=== PATIENT | female | born 1955 | race Caucasian/White ===

== ENCOUNTER 2017-01-31 23:50 | Emergency (ER) | payer MEDICARE, OTHER ==
[2017-01-31 22:07] LABS: WBC (NOT ORDERED) (RFLEX) 0 (0-5)
[2017-01-31 22:12] LABS: BASOPHILS 0.6 %; BASOPHILS ABSOLUTE 0.04 10/3/uL (0.0-0.16); EOSINOPHILS 1.7 %; EOSINOPHILS ABSOLUTE 0.12 10/3/uL (0.0-0.53); ER CBC TAT 0 Hrs 09 Mins; HEMATOCRIT 36.7 % (36.0-48.0); HEMOGLOBIN 12.7 g/dL (12.0-16.0); IMMATURE GRANULOCYTES 0.1 %; IMMATURE GRANULOCYTES ABSOLUTE 0.01 10/3/uL (0.0-0.11); LYMPHOCYTES 46.4 %; LYMPHOCYTES ABSOLUTE 3.18 10/3/uL (0.67-4.30); MEAN CORPUS HGB CONC 34.6 g/dL (32.0-36.0); MEAN CORPUSCULAR HEMOGLOB 34.9 pg (26.0-34.0); MEAN CORPUSCULAR VOLUME 100.8 fL (80-100); MEAN PLATELET VOLUME 9.2 fL (9.2-13.0); MONOCYTES 11.5 %; MONOCYTES ABSOLUTE 0.79 10/3/uL (0.21-1.20); NEUTROPHILS 39.7 %; NEUTROPHILS ABSOLUTE 2.72 10/3/uL (2.02-8.40); PLATELET COUNT 272 10/3/uL (150-400); RBC DISTRIBUTION WIDTH 12.5 % (12.0-16.0); RED CELL COUNT 3.64 10/6/uL (4.0-5.6); WHITE BLOOD CELLS 6.9 10/3/uL (4.5-10.5)
[2017-01-31 22:13] LABS: MANUAL DIFF NO %
[2017-01-31 22:17] LABS: ASCORBIC ACID (UR NOT ORDER) NEG (NEG); BILIRUBIN, URINE NEGATIVE (NEG); ER URINALYSIS TAT 0 Hrs 14 Mins; KETONE, URINE NEGATIVE (NEG); LEUKOCYTE ESTERASE(NOT OR NEG (NEG); NITRITE (URINE) NEG (NEG)
[2017-01-31 22:26] LABS: A/G RATIO 0.9 (0.7-1.9); ALBUMIN 3.5 G/DL (3.5-5.0); CALCIUM, SERUM 8.6 MG/DL (8.5-10.4); CHLORIDE, SERUM 105 MMOL/L (96-112); CREATININE 0.92 MG/DL (0.55-1.02); GFR AFRICAN AMERICAN 77 ML/MIN (>=60); GFR NON AFRICAN AMERICAN 66 ML/MIN (>=60); GLOBULIN 3.8 G/DL (2.5-4.1); GLUCOSE, SERUM 82 MG/DL (60-99); POTASSIUM, SERUM 3.8 MMOL/L (3.5-5.3); SGOT(AST) 18 U/L (5-40); SGPT(ALT) 28 U/L (5-65); SODIUM, SERUM 141 MMOL/L (135-148); TOTAL BILIRUBIN 0.3 MG/DL (0-1.2); TOTAL PROTEIN 7.3 G/DL (6.0-8.5)
[2017-01-31 22:27] LABS: ALKALINE PHOSPHATASE 144 U/L (45-117); BUN (BLOOD UREA NITROGEN) 12 MG/DL (6-23); CO2 (CARBON DIOXIDE) 31 MMOL/L (24-34)
[~2017-01-31 23:50] MED LIST: ACEBUTOLOL PO; ALLEGRA180 PO; B12250T PO; BENIFIBER PO; CENTRUM PO; CENTRUM TAB1 TAB PO; ESTRADIOL VA; FISH-EPA1000 MG PO; FLONASE NAS; FOLIC PO; IMITREX100 MG PO; MAX25 PO; METHOTREXATE25 MG/ML IM; MICARDIS40 PO; PREV30 PO; REMICADE IV; RESTASIS OPH; THERA TEARS OR; VIACTIV PO; VIVELLE-DOT0.1 MG TOP; ZANTAC150 MG PO; [UNRECOGNIZED DRUG - OTHER]; [UNRECOGNIZED DRUG - OTHER] VA
== END 2017-02-01 00:45 | disposition home or self-care (01) ==
LOC: ER 23:50
PROVIDERS: Specialist
DX: R10.9 Unspecified abdominal pain (principal); I10 Essential (primary) hypertension; Z85.828 Personal history of other malignant neoplasm of skin; Z90.710 Acquired absence of both cervix and uterus; Z88.2 Allergy status to sulfonamides; Z88.1 Allergy status to other antibiotic agents; Z88.5 Allergy status to narcotic agent; Z88.8 Allergy status to other drugs, medicaments and biological substances; Z79.899 Other long term (current) drug therapy
CPT/HCPCS: 74176; 80053; 81001; 83690; 85025; 99284

== ENCOUNTER 2017-03-30 14:43 | Observation (INO) | payer MEDICARE, OTHER ==
--- NOTE | ~2017-03-30 | HP ---
History And Physical [place] [id number] [place]. [address] NAME: DARIO MANUEL : 51 STATUS : ADM Edwar PAT#: [id number] AGE: 61 ADM/REG DATE : 03/30/17 MR#: [id number] REPORT SERV DATE: 03/31/17 DICTATED BY: DATE: REPORT STATUS : Draft TRANSCRIBED BY: MODL DATE: 03/31/17 DATE OF ADMISSION: 03/30/2017 CHIEF COMPLAINT: Arm weakness, chest pressure, and chest pain. HISTORY OF PRESENT ILLNESS: This is a 61-year-old white female without a history of coronary artery disease, who presents with weakness to her bilateral arms and chest pressure 2/10 occurring soon after the weakness occurred. The patient reports the weakness in the arms is chronic and occurs intermittently and has occurred intermittently for 10 years. The patient reports the chest pressure is new and lasted about a minute or less without any chest pain yesterday in the morning. The patient denies any recurrence of chest pressure and reports that it went away on its own and she did not use any medications to lessen the intensity. The patient does report that later in the day, chest pain did occur and lasted less than or equal to a minute and occurred only once, it was 2/10 on the pain scale, and the chest pain did not radiate anywhere. She denies having any nausea, vomiting, shortness of breath, diaphoresis, or palpitations during her events. The patient does report to have had "faint- like spells" in the last two to three months, which she has discussed with her PCP. She denies any syncopal episodes and reports that PCP is trying to find out the cause of the "faint-like spells." The patient currently has a migraine with nausea. She was given Tylenol and then morphine, which did not help. Therefore, Imitrex was continued from her home medication list. She reports that her migraines are chronic and have occurred since the . She does report since she received morphine she is mildly drowsy. Other than the migraine, the patient denies any other complaints this morning. The patient currently denies any shortness of breath, chest pain or pressure. Denies any nausea, vomiting, or abdominal pain. The patient also denies any personal history of myocardial infarction, stroke, DVT, or pulmonary embolus. The patient denies any recent fever or chills. No palpitations. No syncopal episodes. Denies PND or orthopnea. PAST MEDICAL HISTORY: 1. MVP. 2. Murmur. 3. Hypertension. 4. Rheumatoid arthritis. 5. GERD. 6. Diverticulosis. 7. Migraines. 8. Sinuses. 9. Allergies. 10.Osteoarthritis. The patient reports her last echo was about 15 years ago and that her MVP and murmur is being assessed by her PCP. PAST SURGICAL HISTORY: 1. Three sinus surgeries. History And Physical [address] [address] NAME: DARIO MANUEL : 51 STATUS : ADM Edwar PAT#: [id number] AGE: 61 ADM/REG DATE : 03/30/17 MR#: [id number] REPORT SERV DATE: 03/31/17 DICTATED BY: DATE: REPORT STATUS : Draft TRANSCRIBED BY: MODL DATE: 03/31/17 2. Tonsillectomy. 3. Right shoulder rotator cuff surgery. 4. Cholecystectomy. 5. Hysterectomy. 6. Bladder sling surgery x3. 7. Tubal ligation. SOCIAL HISTORY: The patient is retired and on disability due to her rheumatoid arthritis and migraine. 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 She is and has two children. She denies any tobacco use. She denies any alcohol use. She denies any illicit drug use. FAMILY HISTORY: 1. Mother with CHF, at the age of 89, had an SD in her 70s. 2. Father had CHF, from that at the age of 79, had a couple of MIs, his first was in the age range of 60 to 70. REVIEW OF SYSTEMS: A 14-point review of systems was performed and significant for HPI. No other contributory diagnoses identified. ALLERGIES: 1. SULFA, REACTION IS RASH AND ITCHING. 2. TETRACYCLIC ANTIDEPRESSANTS, RASH AND ITCHING. 3. OXYCODONE, REACTION IS RASH. 4. PREDNISONE, REACTION IS UNKNOWN. 5. AURANOFIN, REACTION IS RASH AND ITCHING. 6. CLINDAMYCIN, REACTION IS UNKNOWN. 7. CLAVULANIC ACID FROM AUGMENTIN, REACTION IS RASH AND ITCHING. 8. NITROFURANTOIN FROM MACROBID, REACTION IS UNKNOWN. 9. CEFPROZIL FROM CEFZIL, REACTION IS RASH AND ITCHING. 10.AMOXICILLIN FROM AUGMENTIN, REACTION IS RASH AND ITCHING. 11.CETIRIZINE FROM ZYRTEC, REACTION IS UNKNOWN. 12.TRAMADOL, REACTION IS ITCHING. 13.RANITIDINE FROM ZANTAC, REACTION IS CANNOT TOLERATE 300 MG DOSE. 14.OXYBUTYNIN FROM DITROPAN, REACTION IS UNKNOWN. 15.HYDROCHLOROQUINE, REACTION IS ITCHING. 16.TOPIRAMATE FROM TOPAMAX, REACTION IS UNKNOWN. 17.LEVOFLOXACIN FROM LEVAQUIN, REACTION IS UNKNOWN. 18.MONTELUKAST FROM SINGULAIR, REACTION IS UNKNOWN. 19.TOLTERODINE FROM DETROL, REACTION IS UNKNOWN. 20.RISEDRONATE FROM ACTONEL, REACTION IS UNKNOWN. 21.MOXIFLOXACIN FROM AVELOX, REACTION IS RASH AND ITCHING. 22.LEVOCETIRIZINE FROM XYZAL, REACTION IS UNKNOWN. 23.ADVERSE REACTION, HYDROCODONE, REACTION IS A HEADACHE. 24.ACTEMRA, REACTION IS UNKNOWN. History And Physical [address] [address] NAME: DARIO MANUEL : 51 STATUS : ADM Edwar PAT#: [id number] AGE: 61 ADM/REG DATE : 03/30/17 MR#: [id number] REPORT SERV DATE: 03/31/17 DICTATED BY: DATE: REPORT STATUS : Draft TRANSCRIBED BY: LEON DATE: 03/31/17 HOME MEDICATIONS: Acebutolol 200 mg p.o. every morning; Viactiv one tablet p.o. breakfast chewable vitamin; cyanocobalamin 500 mcg p.o. daily; cyclosporine ophthalmic 0.05% (0.4 mL) one vial ophthalmic twice a day; TheraTears tear drops one to each eye p.o. twice a day; Vivelle-Dot 0.1 mg patch topically Wednesday and ; Nai 180 mg p.o. daily; Flonase nasal spray 50 mcg inhalation two sprays nasally every morning; folic acid 3 mg p.o. daily; Simponi one injection subcutaneously every four weeks, the patient gets it at Dr. Nieto's office, her last dose was 02/17/2017; methotrexate 7.5 mg IM Wednesday, last dose was 03/24/2017; multivitamin one tablet p.o. daily; fish oil 1000 mg p.o. twice a day; Zantac 300 mg p.o. twice a day; Imitrex 100 mg p.o. p.r.n.; Micardis 40 mg p.o. at bedtime; Benefiber two teaspoons p.o. twice a day; Vagifem 25 mcg every two times weekly. PHYSICAL EXAMINATION: VITAL SIGNS: Blood pressure 114/59, heart rate 58, temperature 97.9, respirations 20, O2 sat 95% on room air. GENERAL: Cooperative, in no apparent distress. HEENT: Head, normocephalic and anicteric. Normal EOM. PERRLA. No xanthelasma. Nares patent. Moist mucous membranes. NECK: Trachea midline. No thyromegaly, JVD, or bruits. RESPIRATORY: Clear to auscultation bilaterally anterior and posterior. Respirations even and unlabored. No wheezes, rhonchi, or crackles. CARDIOVASCULAR: Regular rate and rhythm. No murmur, rub, or gallop appreciated. No chest wall tenderness to palpation. ABDOMEN: Soft, nontender, nondistended. Normal bowel sounds auscultated throughout. No masses or organomegaly. EXTREMITIES: No peripheral edema. DP/PT and radial pulses palpable bilaterally. No clubbing or cyanosis. SKIN: Warm, dry, and intact. Normal turgor. No pallor or cyanosis. NEURO/PSYCH: Alert, oriented x3 with no acute distress. Affect appropriate to current situation. IMAGING: CT of the brain showed no evidence of acute intracranial pathology. 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 Chest x-ray on 03/30/2017 shows lungs clear, heart size normal, small granuloma identified in the mid left lung field. EKG on 03/30/2017 at 2152 hours shows sinus rhythm at 60, lateral Q-waves noted. school supervisor shows sinus eric at 58, no pauses, no ectopy, no arrhythmia noted. LABORATORY DATA: Troponin x3 less than 0.02. Sodium 140, potassium 3.7, BUN 12, creatinine 0.83, GFR 87, glucose 90, calcium 9.0, magnesium 2.0. White blood cells 6.2, hemoglobin 12.9, hematocrit 37.5, platelets 223. INR 1.1. ASSESSMENT AND PLAN: 1. Substernal chest pain. Troponins x3 have been negative, less than 0.02. The patient denies any chest pain or chest pressure now. Her events only lasted less than or equal History And Physical [address] [address] NAME: DARIO MANUEL : 51 STATUS : ADM Edwar PAT#: [id number] AGE: 61 ADM/REG DATE : 03/30/17 MR#: [id number] REPORT SERV DATE: 03/31/17 DICTATED BY: DATE: REPORT STATUS : Draft TRANSCRIBED BY: MODL DATE: 03/31/17 to one minute of chest pain/chest pressure. Her cardiac risk factors include hypertension and family history. The patient has been observed in the CPOU to rule out myocardial infarction with serial enzymes and serial EKGs. She will be held n.p.o. We will plan an MPI today. If the stress test shows low risk or no ischemia, RN may discharge the patient home with a followup with her PCP in about a week with all the studies being sent to that office. If anything suggestive of ischemia, Cardiology referral will be initiated. 2. Hypertension, appears to be stable. Blood pressure is 114/59. We will continue to monitor and address the home medications. 3. Migraines. Currently, the patient is having a migraine. She has an ice pack. She has received Tylenol and morphine. She reports the morphine has just made her drowsy and did not relieve any of the pain. Imitrex was continued from her home medication list, which she reports helps quite significantly when she has these events. We will continue to monitor and defer to PCP for further management and treatment. 4. Rheumatoid arthritis. The patient is on immunosuppressive therapy, Simponi and methotrexate, we will continue these home medications. 5. Gastroesophageal reflux disease. The patient is on Zantac. 6. Sinuses and allergies. The patient is on Nai. We will defer the patient's migraine, rheumatoid arthritis, gastroesophageal reflux disease, sinuses and allergies treatment management to the patient's PCP after discharge. EKS/MODL Hunter Aguilar APN / [id number] CC: Chaparrita Lawson, JUDY, HUMAN RESOURCE ASSISTANT-BC Lesli Gonzalez M.D.
[2017-03-30 10:18] LABS: BASOPHILS 0.8 %; BASOPHILS ABSOLUTE 0.05 10/3/uL (0.0-0.16); EOSINOPHILS 1.8 %; EOSINOPHILS ABSOLUTE 0.11 10/3/uL (0.0-0.53); ER CBC TAT 0 Hrs 06 MinsNP; HEMATOCRIT 37.5 % (36.0-48.0); HEMOGLOBIN 12.9 g/dL (12.0-16.0); IMMATURE GRANULOCYTES 0.2 %; IMMATURE GRANULOCYTES ABSOLUTE 0.01 10/3/uL (0.0-0.11); LYMPHOCYTES 39.5 %; LYMPHOCYTES ABSOLUTE 2.45 10/3/uL (0.67-4.30); MANUAL DIFF NO %; MEAN CORPUS HGB CONC 34.4 g/dL (32.0-36.0); MEAN CORPUSCULAR VOLUME 101.6 fL (80-100); MEAN PLATELET VOLUME 9.1 fL (9.2-13.0); MONOCYTES 8.2 %; MONOCYTES ABSOLUTE 0.51 10/3/uL (0.21-1.20); NEUTROPHILS 49.5 %; NEUTROPHILS ABSOLUTE 3.07 10/3/uL (2.02-8.40); PLATELET COUNT 223 10/3/uL (150-400); RBC DISTRIBUTION WIDTH 12.7 % (12.0-16.0); RED CELL COUNT 3.69 10/6/uL (4.0-5.6); WHITE BLOOD CELLS 6.2 10/3/uL (4.5-10.5)
[2017-03-30 10:33] LABS: BUN (BLOOD UREA NITROGEN) 12 MG/DL (6-23); CHEST PAIN PROFILE TAT 0 Hrs 21 Mins; CHLORIDE, SERUM 106 MMOL/L (96-112); CO2 (CARBON DIOXIDE) 31 MMOL/L (24-34); CREATININE 0.83 MG/DL (0.55-1.02); GFR AFRICAN AMERICAN 87 ML/MIN (>=60); GFR NON AFRICAN AMERICAN 75 ML/MIN (>=60); GLUCOSE, SERUM 90 MG/DL (60-99); POTASSIUM, SERUM 3.7 MMOL/L (3.5-5.3); SODIUM, SERUM 140 MMOL/L (135-148); TROPONIN I <0.02 NG/ML (<0.05)
[2017-03-30 10:49] LABS: INTERNATIONAL NORMAL RATI 1.1 UNITS (-); PROTIME (NOT ORD) 14.2 SEC (12.0-14.5)
[2017-03-30 10:50] LABS: PARTIAL THROMBO TIME 32.2 SEC (22.5-37.2)
[2017-03-30] MEDS ORDERED: MICARDIS40 PO (16:27)
[2017-03-30] MEDS ORDERED: RESTASIS OPH (16:28)
[2017-03-30] MEDS ORDERED: THERA TEARS PO (16:29)
[2017-03-30] MEDS ORDERED: B12250T PO (16:29)
[2017-03-30] MEDS ORDERED: BENEFIBER PO (16:30)
[2017-03-30] MEDS ORDERED: VIACTIV PO (16:32)
[2017-03-30] MEDS ORDERED: IMITREX100 MG PO (16:33)
[2017-03-30] MEDS ORDERED: FISH-EPA1000 MG PO (16:35)
[2017-03-30] MEDS ORDERED: MULTIVITAMI1 PO (16:35)
[2017-03-30] MEDS ORDERED: VIVELLE SY0.1 MG/24 TOP (16:39)
[2017-03-30] MEDS ORDERED: ESTRADIOL V (16:39)
[2017-03-30] MEDS ORDERED: RANITIDINE300 MG PO (16:41)
[2017-03-30] MEDS ORDERED: ALLEGRA180 PO (16:44)
[2017-03-30] MEDS ORDERED: FLONASE NAS (16:44)
[2017-03-30] MEDS ORDERED: FOLIC PO (16:45)
[2017-03-30] MEDS ORDERED: SIMPONI50 MG SC (16:53)
[2017-03-30] MEDS ORDERED: MTX50 IM (16:57)
[2017-03-30] MEDS ORDERED: ACEBUTOLOL HCL200 MG PO (16:58)
== END 2017-03-31 14:49 | disposition home or self-care (01) ==
LOC: ER 14:43 → CDU1 17:52
PROVIDERS: Emergency Medicine
DX: R07.2 Precordial pain (principal); I10 Essential (primary) hypertension; M06.9 Rheumatoid arthritis, unspecified; K21.9 Gastro-esophageal reflux disease without esophagitis; G43.909 Migraine, unspecified, not intractable, without status migrainosus; M19.90 Unspecified osteoarthritis, unspecified site; D64.9 Anemia, unspecified; Z90.710 Acquired absence of both cervix and uterus; Z90.49 Acquired absence of other specified parts of digestive tract; Z98.890 Other specified postprocedural states; Z98.51 Tubal ligation status; Z88.2 Allergy status to sulfonamides; Z88.8 Allergy status to other drugs, medicaments and biological substances; Z88.1 Allergy status to other antibiotic agents; Z79.899 Other long term (current) drug therapy
CPT/HCPCS: 70450; 71020; 71275; 74175; 78452; 80048; 83735; 84484; 85025; 85379; 85610; 85730; 93005; 93017; 96374; 96375; 96376; 99285; A9270-GY; A9502; G0378; J0153; J2405; Q9967